=== PATIENT | female | born 1985 | race Caucasian/White ===

== ENCOUNTER 2016-04-28 18:46 | Emergency (ER) | payer SELFPAY ==
[~2016-04-28] VITALS: Ht 160 cm; Wt 137.0 kg
[2016-04-28 18:51] VITALS: BP 155/78; PULSE 75; RESP 16; TEMP 98.6; O2SAT 100
--- NOTE | 2016-04-28 19:09 | PD ---
HPI Chief Complaint: Injury Time Seen by Provider: 19:08 Travel History International Travel<30 days: No Contact w/Intl Traveler<30days: No Traveled to known affect area: No History of Present Illness HPI 30-year-old right-hand dominant female presents to the ED for evaluation of left shoulder pain and weakness. Onset after moving a sofa with a friend two days ago. She states that she felt a pop at the time. States that she has gradually lost the ability to raise the arm above shoulder height or overhead. 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 She endorses shooting pain to the elbow. Denies numbness and tingling of the fingers. Treated at home with a lidocaine patch. She denies chronic health problems, takes no daily medications. PFSH Past Medical History Asthma: Yes Cancer: Yes (CERVICAL) Diminished Hearing: No Genitourinary: Yes (OVARIAN CYSTS, DIAGNOSED BY VAGINAL U/S 2007) Reproductive: Yes ( ovarian cysts 2007) Immunizations Current: Yes Thyroid Disease: Yes (HYPOTHYROIDISM) Influenza Vaccination: No ?: Not LMP: ONE WEEK Menopausal: No : 3 Para: 1 Miscarriage: 1 Ovarian Cysts: Yes Past Surgical History Thoracic Surgery: Yes Social History Alcohol Use: Yes (occ.) Tobacco Use: No Substance Use: No Allergies-Medications (Allergen,Severity, Reaction): Coded Allergies: Codeine (Verified Allergy, Severe, ITCH, NAUSEA., 04/28/16) Prednisone (Verified Allergy, Severe, Nausea/Vomiting, 04/28/16) Erythromycin (Verified Adverse Reaction, Severe, VOMITING, 04/28/16) Reported Meds & Prescriptions Reported Meds & Active Scripts Active Ibuprofen 800 Mg Tab 800 Mg PO Q8H PRN Review of Systems Except as stated in HPI: all other systems reviewed are Neg Physical Exam Narrative GENERAL: Well-nourished, well-developed obese, tearful white female in no acute distress. SKIN: Warm and dry. HEAD: Normocephalic. EYES: No scleral icterus. No injection or drainage. NECK: Supple, trachea midline. No JVD or lymphadenopathy. CARDIOVASCULAR: Regular rate and rhythm without murmurs, gallops, or rubs. RESPIRATORY: Breath sounds equal bilaterally. No accessory muscle use. GASTROINTESTINAL: Abdomen soft, non-tender, nondistended. MUSCULOSKELETAL: No cyanosis, or edema. FOCUSED LEFT UPPER EXTREMITY EXAM: 2+ radial pulse. Patient is tender to palpation of the acromioclavicular joint and posterior aspect of the shoulder. Patient is unable to abduct the arm beyond 45. Week to external rotation testing. Patient maintains flexion and extension of the elbow. Strong coater operator strength. Refill less than 2 seconds. Sensation intact distally. BACK: Nontender without obvious deformity. No CVA tenderness. Data Data Last Documented VS Vital Signs Date Time Temp Pulse Resp B/P Pulse Ox O2 Delivery O2 Flow Rate FiO2 04/28/16 18:51 98.6 75 16 155/78 100 Orders Shoulder, Complete (>2vws) (04/28/16 19:09) Ice/Cold Pack (04/28/16 19:09) Acetamin-Hydrocod 325-7.5 Mg ([place] 7.5 (04/28/16 21:00) Mandatory Outpatient Referral (04/28/16 20:52) [facility] Medical Decision Making Medical Screen Exam Complete: Yes Emergency Medical Condition: Yes Differential Diagnosis Musculoskeletal pain versus rotator cuff injury versus shoulder fracture versus dislocation versus other Narrative Course 30-year-old right-hand dominant female presents to the ED for evaluation of left shoulder pain and weakness. Onset after moving a sofa with a friend two days ago. She states that she felt a pop at the time. States that she has gradually lost the ability to raise the arm above shoulder height or overhead. 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 She endorses shooting pain to the elbow. Denies numbness and tingling of the fingers. Treated at home with a lidocaine patch. Vitals reviewed. Physical exam reveals an obese, tearful white female with left arm in a sling. Focused left upper extremity exam reveals 2+ radial pulse. Patient is tender to palpation of the acromioclavicular joint and posterior aspect of the shoulder. Patient is unable to abduct the arm beyond 45. Week to external rotation testing. Patient maintains flexion and extension of the elbow. Strong coater operator strength. Refill less than 2 seconds. Sensation intact distally. Patient was administered ice pack and a milligram Lortab. She is allergic to codeine but states that she has taken Lortab in the past with no problems. X-rays revealed normal radiographic imaging of the left shoulder per radiology read. The patient was prescribed 800 mg ibuprofen 3 times a day. A mandatory outpatient follow-up was placed for the on-call orthopedist. Patient was instructed to continue to wear the sling, take medication as prescribed, follow up with the orthopedist as discussed. She indicated understanding of the instructions. She is amenable to plan of care. She is stable and discharged home. Diagnosis Primary Impression: Injury of left rotator cuff Qualified Code: S46.002A - Injury of left rotator cuff, initial encounter Referrals: Andrew Felix MD Patient Instructions: General Instructions, Rotator Cuff Injury (ED) Additional Instructions: Rest, ice, elevate the extremity. Apply ice no longer than 10-15 minutes per hour a few times a day. 800 mg ibuprofen up to 3 times a day as needed for pain. Return to normal, gentle activity as tolerated. No heavy lifting or overuse of the left arm until cleared by orthopedist. Keep the arm in the sling during the course of the day to remind you to rest. A mandatory outpatient referrals been placed for you. The hospital or the doctor's office will be in touch with appointment information later this week. Follow up with the orthopedist this week. Return to the ED for any urgent or emergent medical condition. Med/Other Pt SpecificInfo: Prescription(s) given Scripts Ibuprofen 800 Mg Mwa079 Mg PO Q8H PRN (Pain/Inflammation) #15 TAB Ref 0 Prov:Krys Flanagan MD 04/28/16 Disposition: 01 DISCHARGE HOME Condition: Stable Kaykay Youssef Apr 28, 2016 19:09
--- NOTE | 2016-04-28 20:29 | RADHPO ---
EXAM DATE/TIME: 04/28/2016 19:43 [facility] COMPARISON: No previous studies available for comparison. INDICATIONS : Patient states she hurt her shoulder lifting a couch, pain. MEDICAL HISTORY : None. SURGICAL HISTORY : None. ENCOUNTER: Initial ACUITY: 3 days PAIN SCORE: 10/10 LOCATION: Left Shoulder FINDINGS: Multiple view examination of the left shoulder demonstrates no evidence of fracture or dislocation. The glenohumeral and acromioclavicular joints are maintained. There is normal range of motion betwee n internal and external rotation. Bony mineralization is normal. CONCLUSION: Normal radiographic appearance of the left shoulder. Jack Kumar MD on April 28, 2016 at 20:27 Board Certified Radiologist. This report was verified electronically.
[2016-04-28] MEDS ORDERED: IBUP800T23 PO (20:51)
[2016-04-28] MEDS ORDERED: ACETAMINOPHEN/HYDROcodone 325 MG/7.5 MG TAB PO ONE (21:00)
== END 2016-04-28 21:39 | disposition home or self-care (01) ==
LOC: PHEFT 18:46
DX: S46.002A Unspecified injury of muscle(s) and tendon(s) of the rotator cuff of left shoulder, initial encounter (principal); E03.9 Hypothyroidism, unspecified; X50.0XXA Overexertion from strenuous movement or load, initial encounter; Y93.89 Activity, other specified; Y92.9 Unspecified place or not applicable
CPT/HCPCS: 73030; 99285

== ENCOUNTER 2016-08-06 16:08 | Emergency (ER) | payer MEDICAID, OTHER ==
[~2016-08-06] VITALS: Ht 160 cm; Wt 134.1 kg
[~2016-08-06 16:08] MED LIST: IBUP800T23 PO
[2016-08-06 16:18] VITALS: BP 149/89; PULSE 54; RESP 16; TEMP 98.6; O2SAT 99
[2016-08-06] MEDS ORDERED: KETOROLAC TROMETHAMINE 60 MG/2 ML (IM) VIAL IM ONE (16:45)
--- NOTE | 2016-08-06 17:05 | PD ---
HPI Chief Complaint: ENT Complaint Time Seen by Provider: 16:44 Travel History International Travel<30 days: No Contact w/Intl Traveler<30days: No Traveled to known affect area: No History of Present Illness HPI 30-year-old female presents to the emergency room for evaluation of sore throat and earache for the past 5 days. Patient states symptoms started simultaneously. She has been trying to take ibuprofen but it is extremely painful to swallow. States she has lost 3 pounds since onset of symptoms because she cannot eat. Drinking is easier. Sore throat is equal bilaterally. She has subjective fevers but has not actually taken her temperature. No nausea or vomiting. Denies cough, congestion. PFSH Past Medical History Asthma: Yes Cancer: Yes (CERVICAL) Diminished Hearing: No Genitourinary: Yes (OVARIAN CYSTS, DIAGNOSED BY VAGINAL U/S 2007) Reproductive: Yes ( ovarian cysts 2007) Immunizations Current: Yes Thyroid Disease: Yes (HYPOTHYROIDISM) Tetanus Vaccination: < 5 Years Influenza Vaccination: No ?: Not LMP: 1week ago Menopausal: No : 3 Para: 1 Miscarriage: 1 Ovarian Cysts: Yes Past Surgical History Section: Yes Thoracic Surgery: Yes Social History Alcohol Use: No Tobacco Use: No Substance Use: No Allergies-Medications (Allergen,Severity, Reaction): Coded Allergies: Codeine (Verified Allergy, Severe, ITCH, NAUSEA., 08/06/16) Prednisone (Verified Allergy, Severe, Nausea/Vomiting, 08/06/16) Erythromycin (Verified Adverse Reaction, Severe, VOMITING, 08/06/16) Reported Meds & Prescriptions Reported Meds & Active Scripts Active No Active Prescriptions or Reported Medications Review of Systems Except as stated in HPI: all other systems reviewed are Neg Physical Exam Narrative GENERAL: Well-nourished, well-developed female in no acute distress. Afebrile. Ambulatory. SKIN: Focused skin assessment warm/dry. HEAD: Normocephalic. EYES: No scleral icterus. No injection or drainage. ENT: Mucosa pink and moist. Moderate erythema with bilateral exudates. There are some exudates on the uvula. Tonsils 3+. No uvular edema. No uvular, palatal, or tonsillar deviation. Airway patent. EARS: Bilateral pinnae and external canals appear within normal limits. Bilateral tympanic membranes without erythema, dullness or perforation. NECK: Supple, trachea midline. No JVD or lymphadenopathy. CARDIOVASCULAR: Regular rate and rhythm without murmurs, gallops, or rubs. RESPIRATORY: Breath sounds equal bilaterally. No accessory muscle use. No crackles, rales, wheezes, or rhonchi. Data Data Last Documented VS Vital Signs Date Time Temp Pulse Resp B/P Pulse Ox O2 Delivery O2 Flow Rate FiO2 08/06/16 16:38 16 08/06/16 16:18 98.6 54 149/89 99 Orders Group A Rapid Strep Screen (08/06/16 16:43) Ketorolac Inj (Toradol Inj) (08/06/16 16:45) Strep Culture (Group A) (08/06/16 17:00) MDM Medical Decision Making Medical Screen Exam Complete: Yes Emergency Medical Condition: Yes Medical Record Reviewed: Yes Differential Diagnosis Streptococcal pharyngitis versus viral pharyngitis versus viral syndrome versus mononucleosis Narrative Course 30-year-old female presents to the emergency room for evaluation of sore throat and earache for the past 5 days. Patient is afebrile and well-appearing in the emergency room. Physical exam reveals moderate erythema and exudates bilaterally. Tonsils 3+. Rapid strep is negative. Likely viral pharyngitis. Patient discharged with prescription for Magic mouthwash. Told to follow up with primary care physician and return for worsening symptoms. She understands and agrees to plan. Diagnosis Primary Impression: Acute viral pharyngitis Referrals: Primary Care Physician Patient Instructions: General Instructions, Pharyngitis (ED) Additional Instructions: Rest and drink plenty of fluids. Magic mouthwash as directed, as needed for pain. Take ibuprofen with food as directed, as needed for pain. Follow-up with a primary care physician. Return to the emergency room for worsening symptoms. Med/Other Pt SpecificInfo: Prescription(s) given Scripts [id number]-Feb-Alum-Simeth Liq (Magic Mouthwash Pediatric/Adult Liq)60 Ml Susp5 Ml SWISH-SWAL ACHS #60 ML Ref 0 Each 5mL contains: Diphenydramine 4.5mg, Viscous Lidocaine 2% 10mg, Maalox Advanced Regular Strength 2.7ml Prov:Jef Arredondo MD 08/06/16 Disposition: 01 DISCHARGE HOME Condition: Stable Maria Ines Brown August 06, 2016 17:05
[2016-08-06] MEDS ORDERED: MAGICPED SWISH-SWAL (17:45)
== END 2016-08-06 18:10 | disposition home or self-care (01) ==
LOC: PHEFT 16:08
DX: J02.9 Acute pharyngitis, unspecified (principal); H92.03 Otalgia, bilateral; J45.909 Unspecified asthma, uncomplicated; E03.9 Hypothyroidism, unspecified; Z85.41 Personal history of malignant neoplasm of cervix uteri; Z88.5 Allergy status to narcotic agent; Z88.1 Allergy status to other antibiotic agents
CPT/HCPCS: 87081; 87880; 96372; 99284; J1885

== ENCOUNTER 2017-04-29 12:44 | Emergency (ER) | payer MEDICAID, OTHER ==
[~2017-04-29] VITALS: Ht 160 cm; Wt 129.7 kg
[~2017-04-29 12:44] MED LIST changes: -IBUP800T23 PO; +MAGICPED SWISH-SWAL
[2017-04-29 12:50] VITALS: BP 126/79; PULSE 50; RESP 16; TEMP 98.6; O2SAT 98
--- NOTE | 2017-04-29 13:09 | PD ---
HPI Chief Complaint: Fall Time Seen by Provider: 12:54 Travel History International Travel<30 days: No Contact w/Intl Traveler<30days: No Traveled to known affect area: No History of Present Illness HPI Patient comes to the emergency department complaining of right hip and shoulder pain that began yesterday after slip and fall at work. Patient reports she slipped on a carpet while carrying a tray to the window. Patient denies hitting her head or loss of consciousness. Denies any loss change in bowel or bladder, , back pain, history of drug use, abdominal pain, numbness or tingling, weakness, or fevers. Patient describes pain as achy soreness in her posterior right hip and right shoulder. Patient reports taking ibuprofen and using ice it seemed to help. Patient reports pain felt worse when she lifted up her 2-year-old today. Denies any radiation of the pain. PFSH Past Medical History Asthma: Yes Cancer: Yes (CERVICAL) Diminished Hearing: No Genitourinary: Yes (OVARIAN CYSTS, DIAGNOSED BY VAGINAL U/S 2007) Reproductive: Yes ( ovarian cysts 2007) Immunizations Current: Yes Thyroid Disease: Yes (HYPOTHYROIDISM) ?: Not Menopausal: No : 3 Para: 1 Miscarriage: 1 Ovarian Cysts: Yes Past Surgical History Section: Yes Thoracic Surgery: Yes Social History Alcohol Use: No Tobacco Use: No Substance Use: No Allergies-Medications (Allergen,Severity, Reaction): Coded Allergies: codeine (Unverified Allergy, Severe, ITCH, NAUSEA., 04/29/17) prednisone (Unverified Allergy, Severe, Nausea/Vomiting, 04/29/17) erythromycin base (Unverified Adverse Reaction, Severe, VOMITING, 04/29/17) Reported Meds & Prescriptions Reported Meds & Active Scripts Active No Active Prescriptions or Reported Medications Review of Systems Except as stated in HPI: all other systems reviewed are Neg Physical Exam Narrative GENERAL: Well-developed, overly nourished, in no acute distress, and non-ill appearing. SKIN: Focused skin assessment warm and dry. HEAD: Atraumatic. Normocephalic. EYES: Pupils equal and round. EOMI. No scleral icterus. No injection or drainage. ENT: No nasal bleeding or discharge. Mucous membranes pink and moist. NECK: Trachea midline. Supple. No nuclear rigidity. CARDIOVASCULAR: Radial and dorsal pulses 2+, intact, and equal bilaterally. Capillary refill less than 2 seconds. RESPIRATORY: No accessory muscle use. No respiratory distress. MUSCULOSKELETAL: No obvious deformities. No clubbing. No cyanosis. No edema. Full range of motion. Shoulder:FROM equal BL with passive flexion, extension, Abduction, Adduction, internal/external rotation, and pronation/supination. Sensation equal BL deltoid muscles. Pulses equal BL distal to injury. Capillary refill less than 2 seconds distal to injury and equal BL. FROM distal to injury and equal BL. Strength distal to injury equal BL. NV intact distal to injury equal BL. Flexion and extension of thumb equal BL. Equal strength and movement with abduction/adductions of BL fingers. [place] Worker strength equal BL. Hip: FROM and equal BL with passive flexion, extension, Abduction, Adduction, and internal/external rotation. Pulses equal BL distal to injury. Capillary refill less than 2 seconds distal to injury and equal BL. FROM distal to injury and equal BL. Strength distal to injury equal BL. NV intact distal to injury and equal BL. Plantar flexion and dorsal flexion equal BL. Dorsal pulses equal BL. Sensation equal BL 1st web space. Patient reports pain with providing resistance of right shoulder and of her right posterior hip near right SI joint. Straight leg test negative bilaterally. No tenderness or crepitus over midline lumbar spine. NEUROLOGICAL: Awake and alert. No obvious cranial nerve deficits. Motor grossly within normal limits. Normal speech. PSYCHIATRIC: Appropriate mood and affect; insight and judgment normal. Data Data Last Documented VS Vital Signs Date Time Temp Pulse Resp B/P (MAP) Pulse Ox O2 Delivery O2 Flow Rate FiO2 04/29/17 12:50 98.6 50 16 126/79 (95) 98 Orders Orders Ed Discharge Order (04/29/17 13:10) [facility] Medical Decision Making Medical Screen Exam Complete: Yes Emergency Medical Condition: Yes Differential Diagnosis Fracture, strain, contusion, dislocation Narrative Course The patient appears to have suffered a contusion of the extremity. There is no clinical evidence to suspect bony injury by exam. Patient was offered x-rays but has declined at this time. The patient has full range of motion on active and passive motions. There is no significant edema or effusion or evidence of joint injury nor proximal or distal joint effusion/injury. The distal extremity appears neurovascularly intact, without evidence of neurovascular injury nor compartment syndrome. Tendon exam also was intact. The patient was discharged and given warnings for vascular compromise. The patient is to follow up with their Workmen's Comp. provider or Orthopedics. The patient agrees with plan. Patient in no obvious distress upon re-evaluation. Any questions/concerns in reference to patient diagnosis/condition discussed and clarified prior to patient's discharge. Reinforced sheer importance of close follow up with patient 's Workmen's Comp. provider or orthopedic. Instructed patient to return to ED immediately, if symptoms return/worsen. Patient showed understanding of above instructions. Further instructions and recommendations were detailed in discharge paperwork. Patient ambulated without difficulty out of ED at discharge. Diagnosis Primary Impression: Contusion of right hip, initial encounter Additional Impressions: Right shoulder pain Qualified Codes: M25.511 - Pain in right shoulder Fall Qualified Codes: W19.XXXA - Unspecified fall, initial encounter Referrals: Cristo Osman MD Patient Instructions: Contusion in Adults (ED), Fall Prevention (DC), General Instructions, Shoulder Pain (GEN) Additional Instructions: Follow-up with your Workmen's Comp. provider and/or orthopedic in 2-5 days for reevaluation. Use [id number] Tylenol and ibuprofen as needed for pain. Follow instructions on the packaging. Apply ice to affected area 20 min/h as needed for pain. Avoid lifting anything greater than 10 pounds until reevaluated. Return to the emergency department if symptoms get worse. Scripts No Active Prescriptions or Reported Meds Disposition: 01 DISCHARGE HOME Condition: Stable Ehsan Borjas Apr 29, 2017 13:09
== END 2017-04-29 13:25 | disposition home or self-care (01) ==
LOC: PHEFT 12:44
DX: S70.01XA Contusion of right hip, initial encounter (principal); M25.511 Pain in right shoulder; J45.909 Unspecified asthma, uncomplicated; Z85.41 Personal history of malignant neoplasm of cervix uteri; Z88.5 Allergy status to narcotic agent; Z88.1 Allergy status to other antibiotic agents; Z88.8 Allergy status to other drugs, medicaments and biological substances; W01.0XXA Fall on same level from slipping, tripping and stumbling without subsequent striking against object, initial encounter
CPT/HCPCS: 99282